=== PATIENT | female | born 1995 | race Caucasian/White ===

== ENCOUNTER 2017-02-25 20:28 | Emergency (ER) | payer BC, OTHER ==
[~2017-02-25] VITALS: Ht 165.1 cm; Wt 68.1 kg
[~2017-02-25 20:28] MED LIST: AMT10 PO; BCPILLS PO; NALT50TA16 PO; SERT-234 PO
[2017-02-25 20:30] VITALS: TEMP 37.2; Ht 165.1 cm; Wt 68.1 kg
[2017-02-25] MEDS ORDERED: LISD20CA PO (20:58)
[2017-02-25] MEDS ORDERED: PRENTAB26 PO (20:58)
[2017-02-25] MEDS ORDERED: KETOROLAC TROMETHAMINE 30 MG/ML VIAL IV STA (21:14)
[2017-02-25] MEDS ORDERED: SODIUM CHLORIDE 0.9% 1000ML 1,000 ML IV STA (21:14)
[2017-02-25 21:39] LABS: URINE APPEARANCE CLOUDY (CLEAR); URINE BILIRUBIN NEG (NEG); URINE COLOR DK YELLOW; URINE EPITHELIAL CELL AUTO >30 /lpf (0-5); URINE NITRITE NEG (NEG); URINE SPECIFIC GRAVITY 1.029 (1.000-1.030); UROBILINOGEN NEG (NEG)
[2017-02-25 21:41] LABS: MANUAL MICROSCOPIC REQUIRED? NO; REVIEW REQ? YES
[2017-02-25 21:49] LABS: BASO % 0.1 %; BASO ABS # 0.01 K/uL (0-0.2); COMPLETE YES; HEMATOCRIT 42.6 % (37-47); IG% 0.1 %; LYMPH % 8.6 %; LYMPH ABS # 0.74 K/uL (1.2-3.4); MEAN CELL VOLUME 90.1 fL (80-100); MEAN CORPUSCULAR HEMOGLOBIN 31.1 pg (25-34); MEAN CORPUSCULAR HGB CONC 34.5 g/dl (32-36); MEAN PLATELET VOLUME 8.8 fL (7.4-10.4); MONO % 4.2 %; PLATELET COUNT 228 K/uL (130-400); RED BLOOD COUNT 4.73 M/uL (4.2-5.4); WHITE BLOOD COUNT 8.56 K/uL (4.8-10.8)
[2017-02-25 22:15] LABS: ALT/SGPT 15 U/L (12-78); BLOOD UREA NITROGEN 8 mg/dl (7-18); BUN/CREATININE RATIO 8.3 (10-20); CARBON DIOXIDE 23 mmol/L (21-32); CHLORIDE 101 mmol/L (98-107); CREATININE 0.95 mg/dl (0.60-1.20); GLUCOSE 99 mg/dl (70-99); POTASSIUM 3.1 mmol/L (3.5-5.1); SODIUM 134 mmol/L (136-145)
[2017-02-25 22:18] LABS: ALKALINE PHOSPHATASE 63 U/L (45-117); AST/SGOT 13 U/L (15-37)
[2017-02-25 22:28] LABS: CALCIUM 8.2 mg/dl (8.5-10.1)
[2017-02-25] MEDS ORDERED: POTASSIUM CHLORIDE 10 MEQ TABCR PO STA (23:55)
[2017-02-26] VITALS: BP 104/51; PULSE 94; O2SAT 98
--- NOTE | 2017-02-26 01:06 | EMERGENCY ROOM VISIT NOTE ---
History Report prepared by Rhiannon: Teetee Beth Under the Supervision of: Dr. Alisson Mena D.O. First contact with patient: 20:43 Chief Complaint: PAIN (GENERALIZED) Stated Complaint: SEVERE BACK/RIB /ABD PAIN, EAR PAIN, HEADACHE History of Present Illness The patient is a 21 year old female who presents to the Emergency Room with complaints of worsening generalized pain that started this morning. The patient states that she is experiencing pain under her ribs, abdominal pain, back pain, and leg pain. She is also experiencing nausea, which started gradually yesterday. The patient states that the nausea is significantly worse today, but she has not vomited. She states that she woke up this morning very nauseous and couldn't get out of bed without feeling lightheaded. The patient is also experiencing increased a mild dry cough, sore throat, and increased urinary frequency. Additionally, she is experiencing intermittent fevers, which she has tried to relieve by laying in the bathtub. She denies diarrhea and abnormal vaginal discharge. She also denies recent drug or alcohol use. The patient's last normal menstrual period was 2-3 weeks ago. She denies any significant past health problems. The patient is on Vyvanse for ADHD and Naltrexone for a previous binge eating disorder. The patient denies any recent sick contacts. Source of History: patient Onset: this morning Position: abdomen, back, leg (bilateral) Quality: other (generalized pain) Timing: worsening Associated Symptoms: + cough (mild, dry), + fevers, + nausea, + sorethroat, + urinary symptoms (increased urinary frequency), No diarrhea, No vomiting Note: lightheadedness, no abnormal vaginal discharge Review of Systems See HPI for pertinent positives & negatives. A total of 10 systems reviewed and were otherwise negative. Past Medical & Surgical Medical Problems: (1) Viral infection, unspecified Family History Diabetes mellitus FH: HTN (hypertension) Social History Smoking Status: Never Smoker Alcohol Use: heavy Housing Status: lives with family Occupation Status: unemployed Current/Historical Medications Scheduled Lisdexamfetamine Dimesylate (Vyvanse), 20 MG PO DAILY Multivit/Min/Iron/Fol Ac/Pren ( Vitamin), 1 TAB PO DAILY Naltrexone HCl (Naltrexone HCl), 50 MG PO QD@1200 Allergies Coded Allergies: Cephalosporins (Verified Allergy, Mild, Hives, 03/02/16) Amoxicillin (Verified Allergy, Unknown, HIVES, 03/02/16) Clindamycin (Verified Allergy, Unknown, HIVES, 03/02/16) Physical Exam Vital Signs Date Time Temp Pulse Resp B/P Pulse Ox O2 Delivery O2 Flow Rate FiO2 02/26/17 00:00 94 16 104/51 98 Room Air 02/25/17 22:10 62 16 109/53 96 Room Air 02/25/17 20:30 37.2 124 18 119/58 99 Room Air Physical Exam HEENT: Head - normocephalic and atraumatic Pupils are equal, round, and reactive to light. Extraocular eye muscles are intact, and sclera are anicteric. Nose - moist nasal mucosa without discharge. Mouth - moist buccal mucosa. Oropharynx is nonerythematous and there is no tonsillar exudate or edema noted. Neck: Supple, nuchal rigidity, cervical lymphadenopathy,. Heart: Tachycardic rate and regular rhythm. There is a normal S1 and S2 with no murmurs, clicks, or gallops appreciated. Lungs: Clear to auscultation bilaterally with no wheezes, rales, or rhonchi. Abdomen: Soft, completely nontender, nondistended, with good bowel sounds. There are no palpable pulsatile masses or hepatosplenomegaly. There is no guarding, rigidity, or rebound noted. Back: Bilateral CVA tenderness. Extremities: No evidence of cyanosis, clubbing, or edema. There are easily palpable peripheral pulses. Skin: hot and dry with good turgor and no rashes. Medical Decision & Procedures Laboratory Results 02/25/17 21:30 Red Blood Count 4.73, Mean Corpuscular Volume 90.1, Mean Corpuscular Hemoglobin 31.1, Mean Corpuscular Hemoglobin Concent 34.5, Mean Platelet Volume 8.8, Neutrophils (%) (Auto) 87.0, Lymphocytes (%) (Auto) 8.6, Monocytes (%) (Auto) 4.2, Eosinophils (%) (Auto) 0.0, Basophils (%) (Auto) 0.1, Neutrophils # (Auto) 7.44, Lymphocytes # (Auto) 0.74, Monocytes # (Auto) 0.36, Eosinophils # (Auto) 0.00, Basophils # (Auto) 0.01 02/25/17 21:30 Test 02/25/17 21:15 02/25/17 21:30 Urine Color DK YELLOW Urine Appearance CLOUDY (CLEAR) Urine pH 5.0 (4.5-7.5) Urine Specific [place] 1.029 (1.000-1.030) Urine Protein NEG (NEG) Urine Glucose (UA) NEG (NEG) Urine Ketones 1+ (NEG) Urine Occult Blood NEG (NEG) Urine Nitrite NEG (NEG) Urine Bilirubin NEG (NEG) Urine Urobilinogen NEG (NEG) Urine Leukocyte Esterase TRACE (NEG) Urine WBC (Auto) 1-5 /hpf (0-5) Urine RBC (Auto) 0-4 /hpf (0-4) Urine Hyaline Casts (Auto) 1-5 /lpf (0-5) Urine Epithelial Cells (Auto) >30 /lpf (0-5) Urine Bacteria (Auto) 1+ (NEG) Urine Pathogenic Casts /lpf (0) Urine Test NEG (NEG) White Blood Count 8.56 K/uL (4.8-10.8) Red Blood Count 4.73 M/uL (4.2-5.4) Hemoglobin 14.7 g/dL (12.0-16.0) Hematocrit 42.6 % (37-47) Mean Corpuscular Volume 90.1 fL (80-100) Mean Corpuscular Hemoglobin 31.1 pg (25-34) Mean Corpuscular Hemoglobin Concent 34.5 g/dl (32-36) Platelet Count 228 K/uL (130-400) Mean Platelet Volume 8.8 fL (7.4-10.4) Neutrophils (%) (Auto) 87.0 % Lymphocytes (%) (Auto) 8.6 % Monocytes (%) (Auto) 4.2 % Eosinophils (%) (Auto) 0.0 % Basophils (%) (Auto) 0.1 % Neutrophils # (Auto) 7.44 K/uL (1.4-6.5) Lymphocytes # (Auto) 0.74 K/uL (1.2-3.4) Monocytes # (Auto) 0.36 K/uL (0.11-0.59) Eosinophils # (Auto) 0.00 K/uL (0-0.5) Basophils # (Auto) 0.01 K/uL (0-0.2) RDW Standard Deviation 41.3 fL (36.4-46.3) RDW Coefficient of Variation 12.4 % (11.5-14.5) Immature Granulocyte % (Auto) 0.1 % Immature Granulocyte # (Auto) 0.01 K/uL (0.00-0.02) Anion Gap 10.0 mmol/L (3-11) Est Creatinine Clear Calc Drug Dose 85.7 ml/min Estimated GFR () 100.6 Estimated GFR (Non- 86.8 BUN/Creatinine Ratio 8.3 (10-20) Calcium Level 8.2 mg/dl (8.5-10.1) Total Bilirubin 0.7 mg/dl (0.2-1) Direct Bilirubin < 0.1 mg/dl (0-0.2) Aspartate Amino Transf (AST/SGOT) 13 U/L (15-37) Alanine Aminotransferase (ALT/SGPT) 15 U/L (12-78) Alkaline Phosphatase 63 U/L (45-117) Total Protein 7.4 gm/dl (6.4-8.2) Albumin 3.9 gm/dl (3.4-5.0) Laboratory results per my review. Medications Administered Medications (Trade) Dose Ordered Sig/Hyacinth Route Start Time Stop Time Status Last Admin Dose Admin Sodium Chloride (Nss 1000ml) 1,000 ml @ 999 mls/hr Q1H1M STAT IV 02/25/17 21:14 02/25/17 22:14 DC 02/25/17 21:43 999 MLS/HR Ketorolac Tromethamine (Toradol Inj) 30 mg NOW STAT IV 02/25/17 21:14 02/25/17 21:16 DC 02/25/17 21:43 30 MG Potassium Chloride (Klor-Con M10) 20 meq NOW STAT PO 02/25/17 23:55 02/25/17 23:57 DC 02/26/17 00:06 20 MEQ Procedure Medications administered Toradol IV Sodium Chloride IV Potassium Chloride PO ED Course 2107: Past medical records reviewed. The patient was evaluated in room B11. A complete history and physical exam was performed. An IV lock was initiated and labs were drawn as above. A urine specimen was obtained. 2113: Ordered Toradol Inj 30 mg IV, Sodium Chloride 1000 ml @ 999 mls/hr IV 8: Upon reevaluation, the patient is doing much better. I discussed findings and results with the patient. She verbalized agreement of the treatment plan. She is going to receive potassium then she will be discharged home. 2355: Ordered Potassium Chloride 20 meq PO Medical Decision The patient is a 21 year old female who presents to the Emergency Room with complaints of worsening generalized pain that started this morning. Differential diagnosis includes pyelonephritis, STI, , colitis, gastritis, pharyngitis. Lab interpretation: Urinalysis 1 + ketone, trace leukocyte esterase, 1+ bacteria, negative Hypokalemia with potassium of 3.1 Glucose 99 LFTs normal Normal white blood cell count Stable H&H The patient presents with some generalized pain and then bilateral flank pain. The urine looks questionably infected. It was sent for culture. There is no significant leukocytosis and no fever. We will await for culture results decide whether to treat the patient for her urine. I've encouraged patient to take plenty of clear liquids and follow-up with the PCP if the symptoms persist. She is to take foods high in potassium. Impression Primary Impression: Bilateral flank pain Additional Impression: Hypokalemia Scribe Attestation The scribe's documentation has been prepared under my direction and personally reviewed by me in its entirety. I confirm that the note above accurately reflects all work, treatment, procedures, and medical decision making performed by me. Departure Information Dispostion Home / Self-Care Referrals No Doctor, Assigned (PCP) Forms HOME CARE DOCUMENTATION FORM, IMPORTANT VISIT INFORMATION, WORK / SCHOOL INSTRUCTIONS Patient Instructions ED Flank Pain Uncertain Cause, My [facility] Additional Instructions Rest. take foods high in potassium Take a bland diet and plenty of clear liquids You will be contacted if urine culture is positive Follow up with pcp today if symptoms persist Problem Qualifiers
== END 2017-02-26 00:30 | disposition home or self-care (01) ==
LOC: C.EDB 20:29
DX: R10.30 Lower abdominal pain, unspecified (principal); E87.6 Hypokalemia; Z86.19 Personal history of other infectious and parasitic diseases; Z79.899 Other long term (current) drug therapy; Z88.1 Allergy status to other antibiotic agents; Z88.8 Allergy status to other drugs, medicaments and biological substances; Z83.3 Family history of diabetes mellitus; Z82.49 Family history of ischemic heart disease and other diseases of the circulatory system

== ENCOUNTER 2017-07-18 18:48 | Emergency (ER) | payer BC, OTHER ==
[~2017-07-18] VITALS: Ht 165.1 cm; Wt 74.5 kg
[~2017-07-18 18:48] MED LIST changes: -AMT10 PO; -BCPILLS PO; +LISD20CA PO; -NALT50TA16 PO; +NLT50 PO; +PRENTAB26 PO; -SERT-234 PO
[2017-07-18 18:51] VITALS: TEMP 37.2; Ht 165.1 cm; Wt 74.5 kg
[2017-07-18 19:35] LABS: BASO % 0.2 %; BASO ABS # 0.02 K/uL (0-0.2); COMPLETE YES; EOS % 2.7 %; HEMATOCRIT 39.6 % (37-47); IG% 0.3 %; LYMPH ABS # 3.32 K/uL (1.2-3.4); MEAN CELL VOLUME 89.8 fL (80-100); MEAN CORPUSCULAR HEMOGLOBIN 30.6 pg (25-34); MEAN CORPUSCULAR HGB CONC 34.1 g/dl (32-36); MEAN PLATELET VOLUME 8.7 fL (7.4-10.4); MONO % 5.5 %; NEUT % 56.3 %; PLATELET COUNT 283 K/uL (130-400); RED BLOOD COUNT 4.41 M/uL (4.2-5.4); WHITE BLOOD COUNT 9.48 K/uL (4.8-10.8)
[2017-07-18 19:37] LABS: URINE APPEARANCE CLEAR (CLEAR); URINE BILIRUBIN NEG (NEG); URINE COLOR ORANGE; URINE EPITHELIAL CELL AUTO >30 /lpf (0-5); URINE NITRITE NEG (NEG); URINE PH 6.5 (4.5-7.5); UROBILINOGEN NEG (NEG); ZZUR CULT IF INDIC CLEAN CATCH YES
[2017-07-18 19:41] LABS: INR 0.9 (0.9-1.1); PARTIAL THROMBOPLASTIN RATIO 1.2
[2017-07-18 19:43] LABS: MANUAL MICROSCOPIC REQUIRED? NO; REVIEW REQ? NO
[2017-07-18 19:51] LABS: BUN/CREATININE RATIO 22.2 (10-20); CALCIUM 8.9 mg/dl (8.5-10.1); CREATININE 0.72 mg/dl (0.60-1.20); POTASSIUM 3.7 mmol/L (3.5-5.1)
--- NOTE | 2017-07-18 20:37 | EMERGENCY ROOM VISIT NOTE ---
History First contact with patient: 18:55 Chief Complaint: ED VAG BLEEDING Stated Complaint: 3-5 WKS , BLEEDING, ABDOMEN PAIN History of Present Illness The patient is a 22 year old female who presents to the Emergency Room with complaints of vaginal bleeding. The patient reports that she is . She had a positive test at her primary care provider's office a few days ago. She states that her last menstrual period was at the end of May. She has had some pelvic cramping for the past several days. The patient notes that this evening, she noticed vaginal bleeding when she went to the bathroom. The bleeding has slowed down, but is still present. She has not yet seen [facility] WORK[facility] for this . She has an appointment with [facility] at the end of the month. The patient reports this is her first . She denies any history of bleeding disorders. She does not take any blood thinners. She denies urinary symptoms, fevers or nausea/vomiting. Review of Systems A complete 10 point review of systems was reviewed with the patient with pertinent positives and negatives as per history of present illness. All else were negative. Past Medical/Surgical History Medical Problems: (1) Viral infection, unspecified Family History Diabetes mellitus FH: HTN (hypertension) Social History Smoking Status: Never Smoker Alcohol Use: heavy Housing Status: lives with family Occupation Status: unemployed Current/Historical Medications Scheduled Multivit/Min/Iron/Fol Ac/Pren ( Vitamin), 1 TAB PO DAILY Physical Exam Vital Signs Date Time Temp Pulse Resp B/P (MAP) Pulse Ox O2 Delivery O2 Flow Rate FiO2 07/18/17 21:49 91 18 114/83 97 Room Air 07/18/17 20:15 108 18 122/81 99 Room Air 07/18/17 18:51 37.2 118 20 147/83 100 Room Air Physical Exam VITALS: Vitals are noted on the nurse's note and reviewed by myself. Vital signs stable. GENERAL: This is a 22-year-old female, in no acute distress, nondiaphoretic, well-developed well-nourished. HEART: Regular rate and rhythm without murmurs gallops or rubs. LUNGS: Clear to auscultation bilaterally without wheezes, rales or rhonchi. ABDOMEN: Positive bowel sounds x 4. Soft, nontender to palpation. NEURO: Patient was alert and oriented to person place and time. Medical Decision & Procedures ER Provider Diagnostic Interpretation: LIMITED (US) IMPRESSION: 1. No definite intrauterine or extra uterine gestation identified. In the setting of positive test, differential considerations would include early normal , recent spontaneous or occult ectopic gestation. Close follow-up with repeat sonographic imaging and serial quantitative beta hCG analysis recommended. 2. Complex cystic structure of the left adnexum, 1.8 cm suggests corpus luteal cyst. An ectopic gestation is thought to be much less likely. Attention at follow-up recommended. Laboratory Results 07/18/17 19:13 Red Blood Count 4.41, Mean Corpuscular Volume 89.8, Mean Corpuscular Hemoglobin 30.6, Mean Corpuscular Hemoglobin Concent 34.1, Mean Platelet Volume 8.7, Neutrophils (%) (Auto) 56.3, Lymphocytes (%) (Auto) 35.0, Monocytes (%) (Auto) 5.5, Eosinophils (%) (Auto) 2.7, Basophils (%) (Auto) 0.2, Neutrophils # (Auto) 5.33, Lymphocytes # (Auto) 3.32, Monocytes # (Auto) 0.52, Eosinophils # (Auto) 0.26, Basophils # (Auto) 0.02 07/18/17 19:13 Test 07/18/17 19:13 07/18/17 19:20 White Blood Count 9.48 K/uL (4.8-10.8) Red Blood Count 4.41 M/uL (4.2-5.4) Hemoglobin 13.5 g/dL (12.0-16.0) Hematocrit 39.6 % (37-47) Mean Corpuscular Volume 89.8 fL (80-100) Mean Corpuscular Hemoglobin 30.6 pg (25-34) Mean Corpuscular Hemoglobin Concent 34.1 g/dl (32-36) Platelet Count 283 K/uL (130-400) Mean Platelet Volume 8.7 fL (7.4-10.4) Neutrophils (%) (Auto) 56.3 % Lymphocytes (%) (Auto) 35.0 % Monocytes (%) (Auto) 5.5 % Eosinophils (%) (Auto) 2.7 % Basophils (%) (Auto) 0.2 % Neutrophils # (Auto) 5.33 K/uL (1.4-6.5) Lymphocytes # (Auto) 3.32 K/uL (1.2-3.4) Monocytes # (Auto) 0.52 K/uL (0.11-0.59) Eosinophils # (Auto) 0.26 K/uL (0-0.5) Basophils # (Auto) 0.02 K/uL (0-0.2) RDW Standard Deviation 42.2 fL (36.4-46.3) RDW Coefficient of Variation 12.9 % (11.5-14.5) Immature Granulocyte % (Auto) 0.3 % Immature Granulocyte # (Auto) 0.03 K/uL (0.00-0.02) Prothrombin Time 10.0 SECONDS (9.0-12.0) Prothromb Time International Ratio 0.9 (0.9-1.1) Activated Partial Thromboplast Time 31.2 SECONDS (21.0-31.0) Partial Thromboplastin Ratio 1.2 Anion Gap 7.0 mmol/L (3-11) Est Creatinine Clear Calc Drug Dose 125.9 ml/min Estimated GFR () 139.7 Estimated GFR (Non- 120.6 BUN/Creatinine Ratio 22.2 (10-20) Calcium Level 8.9 mg/dl (8.5-10.1) Total Bilirubin 0.2 mg/dl (0.2-1) Aspartate Amino Transf (AST/SGOT) 13 U/L (15-37) Alanine Aminotransferase (ALT/SGPT) 17 U/L (12-78) Alkaline Phosphatase 104 U/L (45-117) Total Protein 7.5 gm/dl (6.4-8.2) Albumin 3.8 gm/dl (3.4-5.0) Globulin 3.7 gm/dl (2.5-4.0) Albumin/Globulin Ratio 1.0 (0.9-2) Human Chorionic Gonadotropin, Quant 7 mIU/mL Urine Color ORANGE Urine Appearance CLEAR (CLEAR) Urine pH 6.5 (4.5-7.5) Urine Specific [place] 1.010 (1.000-1.030) Urine Protein TRACE (NEG) Urine Glucose (UA) NEG (NEG) Urine Ketones NEG (NEG) Urine Occult Blood 3+ (NEG) Urine Nitrite NEG (NEG) Urine Bilirubin NEG (NEG) Urine Urobilinogen NEG (NEG) Urine Leukocyte Esterase TRACE (NEG) Urine WBC (Auto) 5-10 /hpf (0-5) Urine RBC (Auto) >30 /hpf (0-4) Urine Hyaline Casts (Auto) 1-5 /lpf (0-5) Urine Epithelial Cells (Auto) >30 /lpf (0-5) Urine Bacteria (Auto) 1+ (NEG) Date/Time Source Procedure Growth Status 07/18/17 19:20 Urine , Clean Catch Urine Culture - Final MORE THAN THREE TYPES OF ORGANISMS ND... Complete ED Course The patient was evaluated as above. Labs were drawn and IV access was obtained. Pelvic ultrasound was performed and read by radiology as above. Case was discussed with Dr. Almaraz of [facility]. She recommended having the patient call the office to schedule follow-up this week. Patient was reevaluated and findings were discussed. Discharge instructions were reviewed with the patient. The patient verbalized understanding of my assessment and treatment plan and was discharged home in good condition. Medical Decision Differential diagnosis includes early , ectopic , spontaneous , inevitable , threatened , among others. The patient is a 22-year-old female who presents today complaining of vaginal bleeding in early . Labs revealed no anemia or leukocytosis. Beta hCG was found to be only 7. Ultrasound was not able to identify an intrauterine . This likely represents a spontaneous . Case was discussed with VENTILATION WORKER, Dr. Almaraz, who recommended having the patient follow up with the office this week for further evaluation. All findings were discussed with the patient. She was advised to return here if she has worsening bleeding or any other new/concerning symptoms. Based on the patient's presentation and work up, I feel the patient is stable for outpatient treatment. The patient was educated to return to the emergency department for any worsening of their current condition or new/concerning symptoms. She will follow up with [facility]ILATION WORKER. Medication Reconcilliation Current Medication List: was personally reviewed by me Blood Pressure Screening Patient's blood pressure: Normal blood pressure Impression Primary Impression: Spontaneous Departure Information Dispostion Home / Self-Care Condition GOOD Referrals Heather Trejo (PCP) Shantell Almaraz D.O. Patient Instructions My [facility] Additional Instructions Call [facility] WORK[facility] to schedule a follow-up appointment this week. For pain control, you can use the following [id number] medicines (if >12 yo): - Regular strength (325mg/tab) Tylenol (acetaminophen) 2 tabs every 4-6 hours as needed. Do not exceed 12 tablets in a 24 hour period. Avoid taking more than 4 grams (4000 mg) of Tylenol per day. This includes any other sources of acetaminophen you may take on a regular basis. - Regular strength (200 mg/tab) Advil (ibuprofen) 1-2 tabs every 4-6 hours as needed. Do not exceed a dose of 3200 mg per day. Return to the emergency department for any worsening pain, heavy bleeding, or any other new/concerning symptoms.
--- NOTE | 2017-07-18 21:27 | DIAGNOSTIC IMAGING REPORT ---
LIMITED (US) HISTORY: 22 years-old Female , vaginal bleeding acute vaginal bleeding with COMPARISON: None available TECHNIQUE: Multiple real-time sonographic images of the deep pelvic structures were obtained transabdominally and transvaginally assessing grayscale appearance, color and spectral flow. FINDINGS: TRANSABDOMINAL: Anteflexed uterus measures 7.5 x 3.5 x 4.7 cm. Endometrium measures 0.3 cm. Ovaries are not well seen. TRANSVAGINAL: Trace free fluid within the cul-de-sac. Uterus measures 7.2 x 3.9 x 4.7 cm. Endometrium measures 0.7 cm. No intrauterine gestation identified. Right ovary measures 2.5 x 1.6 x 2.0 cm with arterial inflow and venous outflow documented. Left ovary measures 3.3 x 2.4 x 2.4 cm with arterial inflow and venous outflow documented. Complex partially cystic structure of the left ovary is seen, 1.8 x 1.4 x 1.6 cm demonstrating peripheral vascularity without central flow is appears to be part of the ovary rather than separate from. IMPRESSION: 1. No definite intrauterine or extra uterine gestation identified. In the setting of positive test, differential considerations would include early normal , recent spontaneous or occult ectopic gestation. Close follow-up with repeat sonographic imaging and serial quantitative beta hCG analysis recommended. 2. Complex cystic structure of the left adnexum, 1.8 cm suggests corpus luteal cyst. An ectopic gestation is thought to be much less likely. Attention at follow-up recommended. The above report was generated using voice recognition software. It may contain grammatical, syntax or spelling errors. Electronically signed by: Juan Patton M.D. 07/18/2017 9:26 PM Dictated Date/Time: 07/18/2017 9:20 PM
[2017-07-18 21:49] VITALS: BP 114/83; PULSE 91; O2SAT 97
== END 2017-07-18 22:17 | disposition home or self-care (01) ==
LOC: C.EDB 18:49 → C.EDC 22:17
DX: O03.9 Complete or unspecified spontaneous abortion without complication (principal); Z3A.01 Less than 8 weeks gestation of pregnancy

== ENCOUNTER 2017-08-01 20:51 | Emergency (ER) | payer BC ==
[~2017-08-01] VITALS: Ht 162.6 cm; Wt 71.7 kg
[~2017-08-01 20:51] MED LIST changes: -LISD20CA PO; -NLT50 PO
[2017-08-01 20:53] VITALS: TEMP 37.1; Ht 162.6 cm; Wt 71.7 kg
[2017-08-01] MEDS ORDERED: BUPR75TA20 PO (21:34)
[2017-08-01] MEDS ORDERED: MELA1TAB3 PO (21:34)
[2017-08-01 21:41] LABS: BASO % 0.2 %; BASO ABS # 0.02 K/uL (0-0.2); COMPLETE YES; EOS % 0.2 %; HEMATOCRIT 44.2 % (37-47); IG% 0.3 %; LYMPH % 19.2 %; LYMPH ABS # 2.02 K/uL (1.2-3.4); MEAN CELL VOLUME 89.3 fL (80-100); MEAN CORPUSCULAR HEMOGLOBIN 30.3 pg (25-34); MEAN CORPUSCULAR HGB CONC 33.9 g/dl (32-36); MEAN PLATELET VOLUME 8.9 fL (7.4-10.4); MONO % 3.2 %; NEUT % 76.9 %; PLATELET COUNT 361 K/uL (130-400); RED BLOOD COUNT 4.95 M/uL (4.2-5.4); WHITE BLOOD COUNT 10.53 K/uL (4.8-10.8)
[2017-08-01 21:43] LABS: URINE APPEARANCE CLEAR (CLEAR); URINE BILIRUBIN NEG (NEG); URINE COLOR YELLOW; URINE NITRITE NEG (NEG); URINE SPECIFIC GRAVITY 1.016 (1.000-1.030); UROBILINOGEN NEG (NEG); ZZUR CULT IF INDIC CLEAN CATCH NO
[2017-08-01 21:47] LABS: MANUAL MICROSCOPIC REQUIRED? NO; REVIEW REQ? NO
[2017-08-01 21:49] LABS: BUN/CREATININE RATIO 10.6 (10-20); CALCIUM 9.4 mg/dl (8.5-10.1); CREATININE 0.77 mg/dl (0.60-1.20); POTASSIUM 3.6 mmol/L (3.5-5.1)
[2017-08-01 22:00] LABS: ALB/GLOB RATIO 1.1 (0.9-2); THYROID STIMULATING HORMONE 1.07 uIu/ml (0.300-4.500)
[2017-08-01 22:08] LABS: BENZODIAZEPINE, URINE NEG (NEG); COCAINE,URINE NEG (NEG); PHENCYCLIDINE, URINE NEG (NEG)
[2017-08-01 22:19] LABS: ACETAMINOPHEN < 2 ug/ml (10-30)
--- NOTE | 2017-08-01 22:21 | EMERGENCY ROOM VISIT NOTE ---
History Report prepared by Wyaneibe: Senia Ruiz Under the Supervision of: Dr. Sagar Brown M.D. First contact with patient: 21:55 Chief Complaint: MENTAL HEALTH EVALUATION Stated Complaint: SUICIDAL THOUGHTS History of Present Illness The patient is a 22 year old female who presents to the Emergency Room with complaints of suicidal thoughts occurring tonight. The patient had a miscarriage 2 weeks ago, she was 5-10 weeks along in her . The patient has a history of suicidal thoughts and says she has them intermittently for the past couple months. She was previously hospitalized twice for alcohol overdose as a suicide suicide attempt. Tonight, the patient planned to take all of her anti-depressant medication. Per mother, the patient's goal was to "go to sleep and not wake up". The patient denies using any drugs or alcohol recently. Source of History: patient Onset: just prior to arrival Position: other (generalized) Quality: other (suicideal thoughts) Modifying Factors (Relieving): other (none) Review of Systems See HPI for pertinent positives and negatives. A total of ten systems were reviewed and were otherwise negative. Past Medical & Surgical Medical Problems: (1) Viral infection, unspecified Family History Diabetes mellitus FH: HTN (hypertension) Social History Smoking Status: Never Smoker Alcohol Use: heavy Housing Status: lives with family Occupation Status: unemployed Current/Historical Medications Scheduled Bupropion (Wellbutrin), 75 MG PO QAM Melatonin-Pyridoxine (Melatonin), 1 TAB PO HS Allergies Coded Allergies: Cephalosporins (Verified Allergy, Mild, Hives, 08/01/17) Amoxicillin (Verified Allergy, Unknown, HIVES, 08/01/17) Clindamycin (Verified Allergy, Unknown, HIVES, 08/01/17) Physical Exam Vital Signs Date Time Temp Pulse Resp B/P (MAP) Pulse Ox O2 Delivery O2 Flow Rate FiO2 08/02/17 07:03 78 18 108/57 97 08/01/17 22:04 90 18 126/75 98 Room Air 08/01/17 20:53 37.1 91 18 131/85 98 Room Air Physical Exam GENERAL: Awake, alert, depressed-appearing, in no distress, poor eye contact. HENT: Normocephalic, atraumatic. Oropharynx unremarkable. Dry MM. EYES: Normal conjunctiva. Sclera non-icteric. NECK: Supple. No nuchal rigidity. FROM. No JVD. RESPIRATORY: Clear to auscultation. CARDIAC: Regular rate, normal rhythm. Extremities warm and well perfused. Pulses equal. ABDOMEN: Soft, non-distended. No tenderness to palpation. No rebound or guarding. No masses. RECTAL: Deferred. MUSCULOSKELETAL: Chest examination reveals no tenderness. The back is symmetrical on inspection without obvious abnormality. There is no CVA tenderness to palpation. No joint edema. LOWER EXTREMITIES: Calves are equal size bilaterally and non-tender. No edema. No discoloration. NEURO: Normal sensorium. No sensory or motor deficits noted. SKIN: No rash or jaundice noted. Medical Decision & Procedures Laboratory Results 08/01/17 21:07 Red Blood Count 4.95, Mean Corpuscular Volume 89.3, Mean Corpuscular Hemoglobin 30.3, Mean Corpuscular Hemoglobin Concent 33.9, Mean Platelet Volume 8.9, Neutrophils (%) (Auto) 76.9, Lymphocytes (%) (Auto) 19.2, Monocytes (%) (Auto) 3.2, Eosinophils (%) (Auto) 0.2, Basophils (%) (Auto) 0.2, Neutrophils # (Auto) 8.10, Lymphocytes # (Auto) 2.02, Monocytes # (Auto) 0.34, Eosinophils # (Auto) 0.02, Basophils # (Auto) 0.02 08/01/17 21:07 Test 08/01/17 21:00 08/01/17 21:07 Urine Color YELLOW Urine Appearance CLEAR (CLEAR) Urine pH 7.0 (4.5-7.5) Urine Specific [place] 1.016 (1.000-1.030) Urine Protein NEG (NEG) Urine Glucose (UA) NEG (NEG) Urine Ketones NEG (NEG) Urine Occult Blood NEG (NEG) Urine Nitrite NEG (NEG) Urine Bilirubin NEG (NEG) Urine Urobilinogen NEG (NEG) Urine Leukocyte Esterase NEG (NEG) Urine Test NEG (NEG) Urine Opiates Screen NEG (NEG) Urine Methadone, Qualitative NEG (NEG) Urine Barbiturates NEG (NEG) Urine Phencyclidine (PCP) Level NEG (NEG) Ur Amphetamine/Methamphetamine NEG (NEG) MDMA (Ecstasy) Screen POS (NEG) Urine Benzodiazepines Screen NEG (NEG) Urine Cocaine Metabolite NEG (NEG) Urine Marijuana (THC) NEG (NEG) White Blood Count 10.53 K/uL (4.8-10.8) Red Blood Count 4.95 M/uL (4.2-5.4) Hemoglobin 15.0 g/dL (12.0-16.0) Hematocrit 44.2 % (37-47) Mean Corpuscular Volume 89.3 fL (80-100) Mean Corpuscular Hemoglobin 30.3 pg (25-34) Mean Corpuscular Hemoglobin Concent 33.9 g/dl (32-36) Platelet Count 361 K/uL (130-400) Mean Platelet Volume 8.9 fL (7.4-10.4) Neutrophils (%) (Auto) 76.9 % Lymphocytes (%) (Auto) 19.2 % Monocytes (%) (Auto) 3.2 % Eosinophils (%) (Auto) 0.2 % Basophils (%) (Auto) 0.2 % Neutrophils # (Auto) 8.10 K/uL (1.4-6.5) Lymphocytes # (Auto) 2.02 K/uL (1.2-3.4) Monocytes # (Auto) 0.34 K/uL (0.11-0.59) Eosinophils # (Auto) 0.02 K/uL (0-0.5) Basophils # (Auto) 0.02 K/uL (0-0.2) RDW Standard Deviation 41.0 fL (36.4-46.3) RDW Coefficient of Variation 12.6 % (11.5-14.5) Immature Granulocyte % (Auto) 0.3 % Immature Granulocyte # (Auto) 0.03 K/uL (0.00-0.02) Anion Gap 7.0 mmol/L (3-11) Est Creatinine Clear Calc Drug Dose 113.2 ml/min Estimated GFR () 128.8 Estimated GFR (Non- 111.1 BUN/Creatinine Ratio 10.6 (10-20) Calcium Level 9.4 mg/dl (8.5-10.1) Total Bilirubin 0.4 mg/dl (0.2-1) Aspartate Amino Transf (AST/SGOT) 16 U/L (15-37) Alanine Aminotransferase (ALT/SGPT) 16 U/L (12-78) Alkaline Phosphatase 82 U/L (45-117) Total Protein 8.4 gm/dl (6.4-8.2) Albumin 4.5 gm/dl (3.4-5.0) Globulin 3.9 gm/dl (2.5-4.0) Albumin/Globulin Ratio 1.1 (0.9-2) Thyroid Stimulating Hormone (TSH) 1.070 uIu/ml (0.300-4.500) Salicylates Level < 1.7 mg/dl (2.8-20) Acetaminophen Level < 2 ug/ml (10-30) Ethyl Alcohol mg/dL < 3.0 mg/dl (0-3) Laboratory results reviewed by me Medications Administered Medications (Trade) Dose Ordered Sig/Hyacinth Route Start Time Stop Time Status Last Admin Dose Admin Acetaminophen (Tylenol Tab) 650 mg NOW STAT PO 08/01/17 22:47 08/01/17 22:58 DC 08/01/17 22:53 650 MG ED Course 3: The patient was evaluated in room A6. A complete history and physical exam was performed. 2247: Tylenol Tab 650 mg PO. 0230: This patient was signed over to Dr. Reilly at the change of shifts Medical Decision I reviewed the patient's past medical history, medications, and the nursing notes as described above. Differential diagnoses: suicidal ideation, depression. The patient is a 22-year-old woman who presents to emergency department with suicidal ideation with thoughts of wanting to overdose in the setting of a recent miscarriage 3 weeks prior to arrival per history of present illness. Arrival the patient is depressed appearing with a flat affect and poor eye contact. She is afebrile with stable vital signs. Labs unremarkable and patient was medically cleared. The patient's recent loss and her history of suicide attempt in the past with her current plan and suicidality I' m concerned for the patient's safety and believe she meets criteria for inpatient treatment. I discussed this with the patient and her mother and the patient was agreeable to stay voluntarily. However should she change her mind this patient should be placed under a 302. Given currently there appears to be no beds available this patient should be evaluated by psychiatry tomorrow so she may receive active treatment and development of her plan while waiting for bed to become available. Patient was signed out to Dr. reilly. Medication Reconcilliation Current Medication List: was personally reviewed by me Blood Pressure Screening Patient's blood pressure: Normal blood pressure Impression Primary Impression: Suicidal ideation Scribe Attestation The scribe's documentation has been prepared under my direction and personally reviewed by me in its entirety. I confirm that the note above accurately reflects all work, treatment, procedures, and medical decision making performed by me. Departure Information Referrals No Doctor, Assigned (PCP) Patient Instructions [facility]
[2017-08-01] MEDS ORDERED: ACETAMINOPHEN 325 MG TAB PO STA (22:47)
--- NOTE | 2017-08-02 08:54 | EMERGENCY ROOM VISIT NOTE ---
ED Visit Note First contact with patient: 08:53 Pt signed out to me by Dr. Brown. No issues reported to me overnight by nursing staff. Pt signed out to Dr. Mueller.
[2017-08-02 13:30] VITALS: BP 128/66; PULSE 84; O2SAT 99
--- NOTE | 2017-08-02 16:06 | EMERGENCY ROOM VISIT NOTE ---
ED Visit Note First contact with patient: 08:51 I received this patient in signout at the change of shift from Dr. Reilly pending mental health bed placement. The patient has been accepted on a 201 to the [facility]. Secure transportation arrangements have been made. Please see prior documentation for further details of the history, physical and visit.
[2017-08-08 15:34] LABS: SYNTHETIC CANNABINOIDS QL URIN NEGATIVE (Negative)
== END 2017-08-02 13:30 | disposition short-term general hospital (02) ==
LOC: C.EDB 20:52 → C.EDA 08-02 13:30
DX: R45.851 Suicidal ideations (principal); Z86.19 Personal history of other infectious and parasitic diseases; Z79.899 Other long term (current) drug therapy; Z88.1 Allergy status to other antibiotic agents; Z88.8 Allergy status to other drugs, medicaments and biological substances; Z83.3 Family history of diabetes mellitus; Z82.49 Family history of ischemic heart disease and other diseases of the circulatory system

== ENCOUNTER 2017-11-12 08:37 | Emergency (ER) | payer BC ==
[~2017-11-12] VITALS: Ht 162.6 cm; Wt 75.0 kg
[~2017-11-12 08:37] MED LIST changes: +BUPR75TA20 PO; +MELA1TAB3 PO; -PRENTAB26 PO
[2017-11-12 08:40] VITALS: TEMP 36.8; Ht 162.6 cm; Wt 75.0 kg
[2017-11-12] MEDS ORDERED: METH4PAK PO (09:53)
[2017-11-12 10:00] VITALS: BP 126/88; PULSE 80; O2SAT 100
--- NOTE | 2017-11-12 17:57 | EMERGENCY ROOM VISIT NOTE ---
ED Visit Note First contact with patient: 08:46 Chief Complaint: Skin problem. History of Present Illness: Ms. Mercado is a 22-year-old white female who ambulates into the ED accompanied by her mother complaining of ongoing skin itching. Patient reports in early September she's been having off and on skin lesions that are itchy. She was initially seen by her primary care provider and they felt this was most likely scabies. She was treated with scabicides and she had mild improvement of symptoms but not complete resolution. She was seen by another practitioner and felt these were hives and she was placed on Benadryl. Once again she had mild relief but they returned. Currently she is complaining of 3-4 skin lesions on the posterior aspect of both upper forearms, one lesion on the lower back and one lesion on the left posterior ankle. She has no related pain but she does report when she itches the skin of becomes burning. She has been using intermittent Benadryl without relief or control of her rash. She has noted that when she takes a hot shower her rash does not increased but her wounds become more itchy. She seen no relief of her discomfort. She denies any associated symptoms including fevers, chills, sweats, open skin lesions, previous significant dermatological conditions, tongue swelling, throat swelling, cough, wheezing, shortness of breath, decreased appetite, nausea/vomiting. Review of Systems: As noted above in history of present illness. 8 body systems were reviewed and found to be negative as noted above. Past Medical History: As previously noted, unspecified ankle surgery. Current Medications: Wellbutrin, melatonin. Allergies to Medications: Amoxicillin, cephalosporin, clindamycin. Social History: Patient is currently a associate of science in nursing; she feels safe in her home environment; Physical Examination: Vital Signs: Date Time Temp Pulse Resp B/P (MAP) Pulse Ox O2 Delivery O2 Flow Rate FiO2 11/12/17 10:00 80 20 126/88 100 11/12/17 08:40 36.8 90 16 96 Room Air GENERAL: 22-year-old female in no acute distress, nontoxic-appearing, afebrile and hemodynamically stable. NEUROLOGICAL: Awake, alert and oriented to person, place and time. Answering questions appropriately and following commands. SKIN: Warm, dry and pink. Bilateral Elbows: Patient has 3-4 individual erythematous papules measuring approximately 3-4 mm over the posterior aspect of both elbows. These areas are excoriated. There is minimal erythema over the areas but the skin does not appear cytolytic. The skin is not hot. There is no drainage from these wounds and there is no lymphangitis. There are additional single lesions on the left buttocks and the left posterior ankle. She does have a positive dermatographia test with welt and flare. HEENT: Atraumatic and normocephalic. Sclera white and conjunctiva pink. No drainage from naris. Airway patent. No posterior pharyngeal erythema or edema. Speech normal and clear. THORAX: Lungs sounds are clear to auscultation and equal bilaterally with symmetrical chest wall. No wheezing, rales or rhonchi. No increased respiratory effort or rate. HEART: Regular rate and rhythm. No gallops, rubs or murmurs are appreciated. ABDOMEN: Flat, soft and nontender. Positive bowel sounds in all quadrants. No guarding, rigidity or organomegaly. EXTREMITIES: Moves all extremities well on command and with purpose. All distal neurovascular statuses are intact and equal bilaterally. ED Course: Patient is assessed as noted above. Patient's medication list was reviewed. I did perform an extensive Internet search but was unsuccessful for identification of her lesion. I did talk to the patient and her mother we decided to use conservative therapy until she could follow-up with dermatology; mother did question whether she should also follow-up with an global account manager and I felt that was appropriate also. Patient and mother were educated about today's findings and instructed on her treatment plan; they verbalized understanding and agreement with this plan. Clinical Impression: Unspecified rash. Itchy rash. Disposition: Patient discharged home in stable condition accompanied by her mother; prior to departure she was reassessed and subjectively reported she was feeling the same. Plan: Patient was prescribed a Medrol Dosepak and instructed on its use. Patient was encouraged use 25-50 mg of Benadryl every 6 hours and 125 mg of Zantac every 12 hours until resolution of skin eruption and itchy skin. Patient was encouraged to use cool compresses or ice bags on areas of severe itching and avoid hot showers/baths. Patient was encouraged to keep her upcoming appointment with dermatology. Patient was encouraged return ED for worsening rash, sensations of throat swelling/tongue swelling, wheezing, shortness of breath, vomiting, fevers or any new/concerning symptoms.
== END 2017-11-12 10:00 | disposition home or self-care (01) ==
LOC: C.EDB 08:39 → C.EDA 10:00
DX: L29.9 Pruritus, unspecified (principal)